=== PATIENT | female | born 1985 | race Caucasian/White ===

== ENCOUNTER 2023-01-21 11:00 | Outpatient (RCR) | payer OTHER, SELFPAY | END 2023-05-21 23:59 | disposition home or self-care (01) | PROVIDERS: PCP Family Medicine; Visit Provider Family Medicine | DX: N39.46 Mixed incontinence (principal); R53.1 Weakness; Z51.89 Encounter for other specified aftercare | CPT/HCPCS: 97110; 97140; 97162; 97535 ==